=== PATIENT | male | born 1985 | race Two or more races ===

== ENCOUNTER → 2016-09-03 | Outpatient (CLI) | payer MEDICAID ==
[~2016-09-03] MED LIST: GADOBUTROL 10 ML VIAL IVP ONE
== END ==
LOC: FIMAGING 15:59
PROVIDERS: ATTEND Podiatrist Foot & Ankle Surgery
DX: M76.821 Posterior tibial tendinitis, right leg (principal); Z87.81 Personal history of (healed) traumatic fracture
CPT/HCPCS: A9585

== ENCOUNTER 2016-12-06 17:34 | Emergency (ER) | payer MEDICAID ==
[2016-12-06 17:38] VITALS: TEMP 97.7
[2016-12-06] MEDS ORDERED: fentaNYL 100 MCG/2 ML INJ ONE (17:43)
[2016-12-06] MEDS ORDERED: PROPOFOL 200 MG/20 ML VIAL ONE ×2 (17:57→17:58)
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
[2016-12-06] MEDS ORDERED: IOPAMIDOL (ISOVUE-300) 100 ML BTL ONE (18:00)
[2016-12-06] MEDS ORDERED: fentaNYL 100 MCG/2 ML INJ IVP ONE (18:13)
[2016-12-06] MEDS ORDERED: PROPOFOL 200 MG/20 ML VIAL IVP ONE (18:13)
[2016-12-06 18:50] VITALS: RESP 16
[2016-12-06] MEDS ORDERED: NS 500 ML IV ONE (18:53)
[2016-12-06] MEDS ORDERED: OXYCODONE/APAP 5/325 TAB PO ONE (18:59)
[2016-12-06] MEDS ORDERED: IBUPROFEN 600 MG TAB PO ONE (18:59)
[2016-12-06] MEDS ORDERED: oxyCODONE IR 5 MG TAB PO ONE (19:04)
[2016-12-06 19:32] VITALS: BP 140/68; PULSE 75; O2SAT 95
== END 2016-12-06 19:30 | disposition home or self-care (01) ==
PROC: 0RSKXZZ Reposition Left Shoulder Joint, External Approach (ICD-10-PCS; principal; 2016-12-06)
DX: S22.32XA Fracture of one rib, left side, initial encounter for closed fracture (principal); S43.005A Unspecified dislocation of left shoulder joint, initial encounter; V18.9XXA Unspecified pedal cyclist injured in noncollision transport accident in traffic accident, initial encounter; Y92.89 Other specified places as the place of occurrence of the external cause
CPT/HCPCS: 82947-QW; 96374; A4565; J2704; J3010; Q9967

== ENCOUNTER → 2016-12-27 | Outpatient (CLI) | payer MEDICAID | LOC: FIMAGING 09:10 | PROVIDERS: ATTEND Physician Assistant | DX: S43.432A Superior glenoid labrum lesion of left shoulder, initial encounter (principal); S46.012A Strain of muscle(s) and tendon(s) of the rotator cuff of left shoulder, initial encounter; M75.22 Bicipital tendinitis, left shoulder; S43.025 Posterior dislocation of left humerus ==

== ENCOUNTER 2017-01-15 10:23 | Day surgery (SDC) | payer MEDICAID ==
[2017-01-15] MEDS ORDERED: ceFAZolin 2 GM/DEXTROSE 100 ML IV ONE (10:27)
[2017-01-15] MEDS ORDERED: LIDOCAINE 1% 2 ML INJ ID PRN (10:35)
[2017-01-15] MEDS ORDERED: LR 1,000 ML IV ONE (10:35)
--- NOTE | 2017-01-15 10:50 | PDHPUP ---
History & Physical Update H&P update statement: This history and physical update is based on an assessment of the patient which was completed after admission or registration (within 24 hours), but prior to the surgery/procedure.
[2017-01-15] MEDS ORDERED: BUPIVACAINE/EPI 0.5% 30 ML SDV ONE (10:53)
[2017-01-15] MEDS ORDERED: MIDAZOLAM 2 MG/2 ML VIAL ONE (11:00)
[2017-01-15] MEDS ORDERED: fentaNYL 100 MCG/2 ML INJ ONE (11:10)
[2017-01-15] MEDS ORDERED: PROPOFOL/EMULSION 500 MG/50 ML BOTTLE IV ONE (11:10)
[2017-01-15] MEDS ORDERED: ROPIVACAINE HCL 150 MG/30 ML INJ ONE (11:11)
[2017-01-15] MEDS ORDERED: DEXAMETHASONE 4 MG/ML VIAL IVP PRN (11:18)
[2017-01-15] MEDS ORDERED: ONDANSETRON 4 MG/2 ML VIAL IVP PRN (11:18)
[2017-01-15] MEDS ORDERED: HYDROmorphONE/DILAUDID 1 MG/ML SYR IVP PRN ×2 (11:18)
[2017-01-15] MEDS ORDERED: MIDAZOLAM 2 MG/2 ML VIAL IVP ONE (11:18)
[2017-01-15] MEDS ORDERED: NALOXONE HCL 0.4 MG/ML INJ IVP PRN (11:18)
[2017-01-15] MEDS ORDERED: fentaNYL 100 MCG/2 ML INJ IVP PRN ×2 (11:18)
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
[2017-01-15] MEDS ORDERED: ONDANSETRON 4 MG/2 ML VIAL ONE (11:54)
[2017-01-15] MEDS ORDERED: DEXAMETHASONE 4 MG/ML VIAL ONE (11:54)
[2017-01-15] MEDS ORDERED: PROPOFOL 200 MG/20 ML VIAL ONE (12:52)
[2017-01-15 15:35] VITALS: PULSE 64; RESP 16; TEMP 97.9
[2017-01-15 15:56] VITALS: BP 114/77; O2SAT 96
== END 2017-01-15 16:17 | disposition home or self-care (01) ==
LOC: FSGY 10:23
PROVIDERS: ATTEND Orthopaedic Surgery
PROC: 0MN24ZZ Release Left Shoulder Bursa and Ligament, Percutaneous Endoscopic Approach (ICD-10-PCS; principal; 2017-01-15 11:30)
PROC: 0LQ24ZZ Repair Left Shoulder Tendon, Percutaneous Endoscopic Approach (ICD-10-PCS; principal; 2017-01-15 11:30)
PROC: 0RQK4ZZ Repair Left Shoulder Joint, Percutaneous Endoscopic Approach (ICD-10-PCS; principal; 2017-01-15 11:30)
DX: S43.422A Sprain of left rotator cuff capsule, initial encounter (principal); S46.012A Strain of muscle(s) and tendon(s) of the rotator cuff of left shoulder, initial encounter; V18.2XXA Unspecified pedal cyclist injured in noncollision transport accident in nontraffic accident, initial encounter
CPT/HCPCS: C1713; J0171; J0690; J1100; J2250; J2405; J2704; J2795; J3010

== ENCOUNTER 2017-09-05 22:45 | Emergency (ER) | payer MEDICAID ==
[2017-09-05 22:53] VITALS: RESP 16; O2SAT 96
[2017-09-05] MEDS ORDERED: PROPARACAINE 0.5% 15 ML OPHT DROP ONE (23:20)
[2017-09-05] MEDS ORDERED: FLUORESCEIN SODIUM 1 MG STRIP OP ONE (23:20)
[2017-09-06 00:11] VITALS: BP 121/64; PULSE 53; TEMP 97.9
[2017-09-06] MEDS ORDERED: OFLOXACIN 0.3% 5ML OPHT DROPS EACHEYE ONE (00:11)
[2017-09-06] MEDS ORDERED: OFLOXACIN 0.3% SOLN PREPACK OPHT.BTL TAKEHOME ONE (00:11)
--- NOTE | 2017-09-06 00:11 | EDPHY ---
H & P Stated Complaint: was breaking up glass for art and got in his eyes Time Seen by Provider: 09/05/17 23:45 HPI/ROS: HPI The patient presents with eye pain, right greater than left for the last 5 days. He was working with a clear tempered glass, which shattered and entered both of his eyes 5 days ago. He washed his eyes but continued to have foreign body sensation which has continued. He initially reported bilateral yellowish goopy discharge from both of his eyes each morning which is now more clear. He did put to [place] juice into both of his eyes 2 days ago and felt that this did help. He has no changes in his vision. He says his eyes are red. He does not wear contacts. REVIEW OF SYSTEMS Constitutional: No fever, no chills. Musculoskeletal: No back pain. Skin: No rashes. Neurological: No headache. PMHx: Healthy PHYSICAL General Appearance: Alert, no distress EYE EXAM Visual Acuity: noted from Nurse's notes. Pupils: equal round and reactive to light EOMI Skin: no proptosis, no periorbital erythema or swelling, no vesicles; lids everted with no foreign body visualized Conjunctivae: Mildly injected bilaterally with limbic sparing, no discharge Cornea: exam with fluoroscein shows right eye with fluorescein uptake at nasal aspect of iris, approximately 2 mm [place] Anterior chamber:normal, no hyphema or hypopyon ENT, Mouth: Mucous membranes moist Respiratory: Breathing comfortably Neurological: A&O, moves all extremities Skin: Warm and dry, no rashes Source: Patient Exam Limitations: No limitations - Personal History Current Tetanus/Diphtheria Vaccine: Yes Current Tetanus Diphtheria and Acellular Pertussis (TDAP): Yes Tetanus Vaccine Date: < 10 years - Medical/Surgical History Hx Asthma: No Hx Chronic Respiratory Disease: No Hx Diabetes: No Hx Cardiac Disease: No Hx Renal Disease: No Hx Cirrhosis: No Hx Alcoholism: No Hx HIV/AIDS: No Hx Splenectomy or Spleen Trauma: No Other PMH: previous injury to back - Social History Smoking Status: Never smoked Constitutional: Initial Vital Signs Temperature (C) 36.9 C 09/05/17 22:51 Heart Rate 55 L 09/05/17 22:51 Respiratory Rate 16 09/05/17 22:51 Blood Pressure 109/56 L 09/05/17 22:51 O2 Sat (%) 96 09/05/17 22:51 O2 Delivery Mode Room Air Allergies/Adverse Reactions: morphine Allergy (Verified 09/05/17 22:53) Itching Home Medications: Medication Instructions Recorded NK [No Known Home Meds] 01/13/17 Medical Decision Making Differential Diagnosis: 32-year-old male who is healthy presents with tempered glass to both eyes 5 days ago with ongoing symptoms. He reports that his eyes are red, there is a discharge that was initially yellowish and now is clear, there is foreign body sensation right greater than left. On exam, he appears to have a right-sided corneal abrasion which is small. No foreign body was visualized. His conjunctiva are injected consistent with mild conjunctivitis. I have also considered foreign body, iritis. I will treat him with ofloxacin eyedrops. I have referred him to Ophthalmology if he is not better in 1-2 days. Departure - Departure Disposition: Home, Routine, Self-Care Clinical Impression: Corneal abrasion Qualifiers: Encounter type: initial encounter Laterality: right Qualified Code(s): S05.01XA - Injury of conjunctiva and corneal abrasion without foreign body, right eye, initial encounter Conjunctivitis Qualifiers: Conjunctivitis type: acute Acute conjunctivitis type: unspecified Laterality: bilateral Qualified Code(s): H10.33 - Unspecified acute conjunctivitis, bilateral Condition: Good Instructions: Corneal Abrasion (ED) Additional Instructions: Use ofloxacin 2 drops 4 times a day in both eyes for the next 1 week. If you' re not better in 2 days I would like for you to call the gravel weigher. I have listed his information below. Referrals: Len Smith MD [Medical Doctor] - As per Instructions
== END 2017-09-06 00:33 | disposition home or self-care (01) ==
DX: S05.01XA Injury of conjunctiva and corneal abrasion without foreign body, right eye, initial encounter (principal); H10.33 Unspecified acute conjunctivitis, bilateral; W25.XXXA Contact with sharp glass, initial encounter; Y93.89 Activity, other specified

== ENCOUNTER → 2017-09-09 | Outpatient (CLI) | payer MEDICAID | LOC: BMCIMAGING 13:54 | PROVIDERS: ATTEND Orthopaedic Surgery Hand Surgery | DX: M79.645 Pain in left finger(s) (principal) ==